=== PATIENT | female | born 1990 | race Caucasian/White ===

== ENCOUNTER 2017-03-16 10:07 | Inpatient (IN) | payer MEDICAID ==
[~2017-03-16] VITALS: Ht 157.5 cm; Wt 46.7 kg
[2017-03-16] VITALS (7 sets, daily range): BP systolic 100–118; BP diastolic 65–80
[~2017-03-16 10:07] MED LIST: BENZ0.5T6 PO; BENZ1TAB10 PO; CLON.5 PO; DIPH25 PO; HALO1 PO; PROZ10 PO
[2017-03-16 11:23] LABS: BASOPHILS % (AUTO) 0.7 % (0.0-2.0); EOSINOPHILS % (AUTO) 0.5 % (1.0-6.0); HEMATOCRIT 39.1 % (36-46); HEMOGLOBIN 13.3 g/dL (12.0-16.0); LYMPHOCYTES # (AUTO) 2.3 K/uL (1.0-4.8); LYMPHOCYTES % (AUTO) 30.3 % (22.0-44.0); MEAN CORPUSCULAR HEMOGLOBIN 30.8 pg (26.0-34.0); MEAN CORPUSCULAR HGB CONC 33.9 G/dL (31.0-37.0); MEAN CORPUSCULAR VOLUME 91 fL (80-100); MONOCYTES # (AUTO) 0.3 K/uL (0.1-1.0); MONOCYTES % (AUTO) 4.3 % (2.0-9.0); NEUTROPHILS # (AUTO) 4.8 K/uL (1.8-7.7); NEUTROPHILS % (AUTO) 64.2 % (40.0-70.0); PLATELET COUNT (AUTO) 354 K/uL (150-450); RED CELL DISTRIBUTION WIDTH 13.7 % (11.5-14.5); WHITE BLOOD COUNT (AUTO) 7.5 K/uL (4.5-11.0)
[2017-03-16 11:26] LABS: ANION GAP 9 mmol/L (8-16); CALCIUM, TOTAL 9.2 mg/dL (8.8-10.5); CARBON DIOXIDE 24 mmol/L (22-29); CHLORIDE 104 mmol/L (98-107); CREATININE 0.66 mg/dL (0.60-1.30); GLOMERULAR FILTR. RATE CALC > 60 mL/min (>60); POTASSIUM 4.1 mmol/L (3.5-5.1); SODIUM SERUM 137 mmol/L (136-145); UREA NITROGEN, BLOOD 9 mg/dL (7-18)
[2017-03-16 11:32] LABS: ALANINE AMINOTRANSFERASE 37 U/L (12-78); ALBUMIN 3.5 g/dL (3.4-5.0); ASPARTATE AMINOTRANSFERASE 20 U/L (15-37); BILIRUBIN,TOTAL 0.2 mg/dL (0.1-1.0); TOTAL PROTEIN, SERUM 7.9 g/dL (6.4-8.2)
[2017-03-16] MEDS ORDERED: PROMETHAZINE HCL 25 MG TABLET PO PRN (14:00)
[2017-03-16] MEDS ORDERED: LOPERAMIDE HCL 2 MG CAPSULE PO PRN ×2 (14:00)
[2017-03-16] MEDS ORDERED: LORazepam 2 MG TABLET PO ONE (14:00)
[2017-03-16] MEDS ORDERED: PROMETHAZINE HCL 25 MG/ML VIAL IM PRN (14:00)
[2017-03-16] MEDS ORDERED: MAGNESIUM HYDROXIDE SUSPENSION 30 ML UDCUP PO PRN (14:00)
[2017-03-16] MEDS ORDERED: TUBERCULIN, PURIFIED PROTEIN DERIVATIVE 5 TU/0.1 ML SYG ID ONE (14:00)
[2017-03-16] MEDS ORDERED: CYANOCOBALAMIN 1,000 MCG/ML VIAL IM ONE (14:00)
[2017-03-16] MEDS ORDERED: GuaiFENesin/D-METHORPHAN [SUGAR-FREE] 200-20MG/10 ML SYRUP UDCUP PO PRN (14:00)
[2017-03-16] MEDS ORDERED: ACETAMINOPHEN 325 MG TABLET PO PRN (14:00)
[2017-03-16] MEDS ORDERED: IBUPROFEN 600 MG TABLET PO PRN (14:00)
[2017-03-16] MEDS ORDERED: CloNIDine HCL 0.1 MG TABLET PO PRN (14:00)
[2017-03-16] MEDS ORDERED: MAG HYDROX/AL HYDROX/SIMETH ES 30 ML SUSPENSION UDCUP PO PRN ×2 (14:00)
[2017-03-16] MEDS ORDERED: HydrOXYzine PAMOATE 50 MG CAPSULE PO PRN ×2 (14:00)
[2017-03-16] MEDS: CloNIDine HCL 0.1 MG TABLET PO SCH ×2 (17:43→21:36)
[2017-03-16] MEDS: GABAPENTIN 100 MG CAPSULE PO SCH ×2 (17:43→21:36)
[2017-03-16] MEDS: THIAMINE HCL 100 MG TABLET PO SCH (17:43)
[2017-03-16] MEDS: TraZODone HCL 50 MG TABLET PO SCH (20:35)
[2017-03-16] MEDS ORDERED: PNEUMOCOCCAL VACCINE POLYVALENT 0.5 ML VIAL [PPSV23] IM ONE (20:45)
[2017-03-17] VITALS (10 sets, daily range): BP systolic 93–120; BP diastolic 54–75
[2017-03-17] MEDS: CloNIDine HCL 0.1 MG TABLET PO SCH ×4 (06:01→21:04)
[2017-03-17] MEDS: LORazepam 2 MG TABLET PO PRN ×2 (09:41→13:41)
[2017-03-17] MEDS: GABAPENTIN 100 MG CAPSULE PO SCH ×3 (09:41→16:56)
[2017-03-17] MEDS: SERTRALINE HCL 50 MG TABLET PO SCH (09:44)
[2017-03-17] MEDS: THIAMINE HCL 100 MG TABLET PO SCH ×2 (09:44→16:56)
[2017-03-17] MEDS: FOLIC ACID 1 MG TABLET PO SCH (09:44)
[2017-03-17] MEDS: ACAMPROSATE CALCIUM 333 MG DR TABLET PO SCH ×3 (09:44→16:56)
[2017-03-17] MEDS: MULTIVITAMINS WITH MINERALS, THERAPEUTIC TABLET PO SCH (09:44)
[2017-03-17] MEDS: GABAPENTIN 300 MG CAPSULE PO SCH (21:03)
[2017-03-17] MEDS: TraZODone HCL 50 MG TABLET PO SCH (21:04)
[2017-03-18 04:23] VITALS: BP 108/62
[2017-03-18 06:42] VITALS: BP 116/73
[2017-03-18] MEDS: CloNIDine HCL 0.1 MG TABLET PO SCH ×4 (06:45→21:14)
[2017-03-18] MEDS: GABAPENTIN 300 MG CAPSULE PO SCH ×4 (08:10→21:13)
[2017-03-18] MEDS: SERTRALINE HCL 50 MG TABLET PO SCH (08:10)
[2017-03-18] MEDS: ACAMPROSATE CALCIUM 333 MG DR TABLET PO SCH ×3 (08:11→16:13)
[2017-03-18] MEDS: THIAMINE HCL 100 MG TABLET PO SCH ×2 (08:11→16:13)
[2017-03-18] MEDS: FOLIC ACID 1 MG TABLET PO SCH (08:11)
[2017-03-18] MEDS: MULTIVITAMINS WITH MINERALS, THERAPEUTIC TABLET PO SCH (08:11)
[2017-03-18] MEDS: LORazepam 2 MG TABLET PO PRN (09:22)
[2017-03-18 10:54] VITALS: BP 100/62
[2017-03-18 16:22] VITALS: BP 130/89
[2017-03-18 21:00] VITALS: BP 100/71
[2017-03-18] MEDS: TraZODone HCL 50 MG TABLET PO SCH (21:13)
[2017-03-18] MEDS: ZOLPIDEM TARTRATE 10 MG TABLET PO PRN (21:34)
[2017-03-19 05:40] VITALS: BP_SYST 101; BP_SYST 120; BP_DIAS 58; BP_DIAS 64
[2017-03-19 05:44] VITALS: BP_SYST 101; BP_SYST 120; BP_DIAS 58; BP_DIAS 64
[2017-03-19] MEDS: CloNIDine HCL 0.1 MG TABLET PO SCH ×4 (05:55→21:03)
[2017-03-19] MEDS: LORazepam 2 MG TABLET PO PRN (08:12)
[2017-03-19] MEDS: MULTIVITAMINS WITH MINERALS, THERAPEUTIC TABLET PO SCH (08:12)
[2017-03-19] MEDS: SERTRALINE HCL 50 MG TABLET PO SCH (08:12)
[2017-03-19] MEDS: FOLIC ACID 1 MG TABLET PO SCH (08:12)
[2017-03-19] MEDS: ACAMPROSATE CALCIUM 333 MG DR TABLET PO SCH ×3 (08:12→16:22)
[2017-03-19] MEDS: GABAPENTIN 300 MG CAPSULE PO SCH ×4 (08:12→21:03)
[2017-03-19] MEDS: THIAMINE HCL 100 MG TABLET PO SCH ×2 (08:13→16:22)
[2017-03-19 08:30] VITALS: BP 99/66
[2017-03-19 16:25] VITALS: BP 101/68
[2017-03-19 20:47] VITALS: BP 102/62
[2017-03-19] MEDS: TraZODone HCL 50 MG TABLET PO SCH (21:03)
[2017-03-19] MEDS: ZOLPIDEM TARTRATE 10 MG TABLET PO PRN (21:24)
[2017-03-20 05:41] VITALS: BP 99/58
[2017-03-20 05:58] VITALS: BP 111/61
[2017-03-20] MEDS: CloNIDine HCL 0.1 MG TABLET PO SCH ×4 (06:07→21:12)
[2017-03-20] MEDS: ACAMPROSATE CALCIUM 333 MG DR TABLET PO SCH ×3 (08:25→16:10)
[2017-03-20] MEDS: GABAPENTIN 300 MG CAPSULE PO SCH ×2 (08:25→12:55)
[2017-03-20] MEDS: MULTIVITAMINS WITH MINERALS, THERAPEUTIC TABLET PO SCH (08:25)
[2017-03-20] MEDS: FOLIC ACID 1 MG TABLET PO SCH (08:25)
[2017-03-20] MEDS: THIAMINE HCL 100 MG TABLET PO SCH ×2 (08:26→16:11)
[2017-03-20] MEDS: SERTRALINE HCL 50 MG TABLET PO SCH (08:34)
[2017-03-20 08:36] VITALS: BP 110/72
[2017-03-20] MEDS: LORazepam 2 MG TABLET PO PRN (09:14)
[2017-03-20] MEDS: QUEtiapine FUMARATE 100 MG TABLET PO PRN (12:55)
[2017-03-20] MEDS: GABAPENTIN 400 MG CAPSULE PO SCH ×2 (16:10→21:12)
[2017-03-20 16:28] VITALS: BP 116/64
[2017-03-20] MEDS ORDERED: QUEtiapine FUMARATE 200 MG TABLET PO SCH (21:00)
[2017-03-20] MEDS: ZOLPIDEM TARTRATE 10 MG TABLET PO PRN (21:19)
[2017-03-21] MEDS: ClonazePAM 1 MG TABLET PO PRN ×2 (05:22→09:38)
[2017-03-21 06:03] VITALS: BP 103/67
[2017-03-21] MEDS: CloNIDine HCL 0.1 MG TABLET PO SCH ×2 (06:05→12:58)
[2017-03-21 08:19] VITALS: BP 107/64
[2017-03-21] MEDS ORDERED: SERTRALINE HCL 50 MG TABLET PO SCH (09:00)
[2017-03-21] MEDS: THIAMINE HCL 100 MG TABLET PO SCH (09:06)
[2017-03-21] MEDS: GABAPENTIN 400 MG CAPSULE PO SCH ×2 (09:06→12:58)
[2017-03-21] MEDS: ACAMPROSATE CALCIUM 333 MG DR TABLET PO SCH ×2 (09:06→12:58)
[2017-03-21] MEDS: MULTIVITAMINS WITH MINERALS, THERAPEUTIC TABLET PO SCH (09:06)
[2017-03-21] MEDS: FOLIC ACID 1 MG TABLET PO SCH (09:06)
[2017-03-21] MEDS: QUEtiapine FUMARATE 100 MG TABLET PO PRN (09:38)
[2017-03-21] MEDS ORDERED: GABA-533 PO (11:44)
[2017-03-21] MEDS ORDERED: ACAM333T7 PO (11:44)
[2017-03-21] MEDS ORDERED: QUET200T29 PO (11:44)
[2017-03-21] MEDS ORDERED: SERT50TA12 PO (14:19)
== END 2017-03-21 15:29 | disposition home or self-care (01) | DRG 754 ==
LOC: EMS 10:09 → EEVIPCON 10:09 → EMS 16:35 → B3A 17:19
PROVIDERS: ADMIT Psychiatry & Neurology Psychiatry; ATTEND Psychiatry & Neurology Psychiatry
PROC: HZ2ZZZZ Detoxification Services for Substance Abuse Treatment (ICD-10-PCS; principal; 2017-03-16)
DX: F32.9 Major depressive disorder, single episode, unspecified (principal); B25.9 Cytomegaloviral disease, unspecified; R45.851 Suicidal ideations; R63.4 Abnormal weight loss; F17.200 Nicotine dependence, unspecified, uncomplicated; F19.10 Other psychoactive substance abuse, uncomplicated; F20.0 Paranoid schizophrenia; Z91.14 Patient's other noncompliance with medication regimen; J45.909 Unspecified asthma, uncomplicated; Z79.899 Other long term (current) drug therapy; B19.20 Unspecified viral hepatitis C without hepatic coma; D64.9 Anemia, unspecified; F11.10 Opioid abuse, uncomplicated; Z76.5 Malingerer [conscious simulation]; Z68.1 Body mass index [BMI] 19.9 or less, adult; Z28.21 Immunization not carried out because of patient refusal
CPT/HCPCS: 99285; G0480; J3420